=== PATIENT | female | born 1985 | race American Indian/Alaskan Native ===

== ENCOUNTER 2019-07-05 14:22 | Emergency (ER) | payer SELFPAY ==
[2019-07-05 14:30] VITALS: BP 125/77
[2019-07-05] MEDS ORDERED: ANTIVERT PO ONE (15:51)
[2019-07-05] MEDS ORDERED: NACL 0.9% 1000 ML 1,000 ML IV ONE (15:51)
[2019-07-05 16:40] LABS: Eosinophils # (Auto) 0.3 K/mm3 (0.0-0.4); Hematocrit 39.8 % (30.3-42.9); Hemoglobin 13.1 gm/dl (10.1-14.3); Lymphocytes # (Auto) 2.3 K/mm3 (1.2-5.4); Lymphocytes % (Auto) 45.3 % (13.4-35.0); Mean Corpuscular HGB Conc 33 % (30-34); Mean Corpuscular Volume 84 fl (79-97); Monocytes # (Auto) 0.4 K/mm3 (0.0-0.8); Monocytes % (Auto) 7.7 % (0.0-7.3); Platelet Count 265 K/mm3 (140-440); Red Blood Count 4.76 M/mm3 (3.65-5.03); Red Cell Distribution Width 14.2 % (13.2-15.2)
[2019-07-05 16:46] LABS: Alanine Aminotransferase 9 units/L (7-56); Albumin 4.2 g/dL (3.9-5); BUN/Creatinine Ratio 14; Blood Urea Nitrogen 11 mg/dL (7-17); Calcium 9.7 mg/dL (8.4-10.2); Hemolysis Index 12
--- NOTE | 2019-07-05 17:18 | Emergency Department Report ---
ED General Adult HPI - General Chief complaint: Dizziness Stated complaint: DIZZINESS/BLACKOUTS Time Seen by Provider: 07/05/19 15:40 Source: patient Mode of arrival: Ambulatory Limitations: No Limitations - History of Present Illness Initial comments: This is a 33-year-old female dizziness intermittently for the past few days. Patient states she was at home when symptoms started. Patient states that he feels that the room is spinning around her. Patient states that dizziness is worsened with standing and alleviated with sitting or resting. She states last menstrual period as 06/14/2019. Patient states that she takes no medications or has any allergies to any medications. Patient states that she is pretty healthy and has no medical conditions. She denies fever assess chills/nausea vomiting/blurry vision or visual disturbances. - Related Data Previous Rx's Medication Instructions Recorded Last Taken Type Meclizine [Antivert] 25 mg PO BID PRN #20 tablet 07/05/19 Unknown Rx Nitrofurantoin Banner/M-Cryst 100 mg PO Q12HR #14 capsule 07/05/19 Unknown Rx [Macrobid CAP] Allergies Allergy/AdvReac Type Severity Reaction Status Date / Time No Known Allergies Allergy Unverified 07/05/19 14:31 ED Review of Systems ROS: Stated complaint: DIZZINESS/BLACKOUTS Other details as noted in HPI Comment: All other systems reviewed and negative ED Past Medical Hx - Past Medical History Previous Medical History?: No - Surgical History Past Surgical History?: No - Social History Smoking Status: Never Smoker Substance Use Type: None - Medications Home Medications: Home Medications Medication Instructions Recorded Confirmed Last Taken Type Meclizine [Antivert] 25 mg PO BID PRN #20 tablet 07/05/19 Unknown Rx Nitrofurantoin Banner/M-Cryst 100 mg PO Q12HR #14 capsule 07/05/19 Unknown Rx [Macrobid CAP] ED Physical Exam - General Limitations: No Limitations General appearance: alert, in no apparent distress - Head Head exam: Present: atraumatic, normocephalic - Eye Eye exam: Present: normal appearance - ENT ENT exam: Present: mucous membranes moist - Neck Neck exam: Present: normal inspection - Respiratory Respiratory exam: Present: normal lung sounds bilaterally. Absent: respiratory distress - Cardiovascular Cardiovascular Exam: Present: regular rate, normal rhythm. Absent: systolic murmur, diastolic murmur, rubs, gallop - GI/Abdominal GI/Abdominal exam: Present: soft, normal bowel sounds - Extremities Exam Extremities exam: Present: normal inspection - Back Exam Back exam: Present: normal inspection - Neurological Exam Neurological exam: Present: alert, oriented X3, CN II-XII intact, normal gait - Expanded Neurological Exam Expanded Cerebellar function: Finger to Nose: Normal Motor strength exam: RUE: 5, LUE: 5, RLE: 5, LLE: 5 Best Eye Response (Mariam): (4) open spontaneously Best Motor Response (Alto): (6) obeys commands Best Verbal Response (Alto): (5) oriented Mariam Total: 15 - Psychiatric Psychiatric exam: Present: normal affect, normal mood - Skin Skin exam: Present: warm, dry, intact, normal color. Absent: rash ED Course Vital Signs 07/05/19 14:28 Temperature 98.3 F Pulse Rate 73 Respiratory 19 Rate Blood Pressure 125/77 [Right] O2 Sat by Pulse 99 Oximetry ED Medical Decision Making - Lab Data Result diagrams: 07/05/19 16:03 07/05/19 16:03 - Medical Decision Making 33-year-old female presents with dizziness most likely due to vertigo/electrolyte imbalance. Patient received meclizine in the ED, CBC, CMP, urine tests a urinalysis obtained. Urinalysis positive for urinary tract infection. Antibiotics given for treatment Labs were within normal limits. Discussed findings with the patient. Discussed with patient will send her home on meclizine and follow up to see a neurologist/primary-care physician. Vital signs are normal patient is in no acute distress she has no neurological deficit and states to understanding instructions. Critical care attestation.: If time is entered above; I have spent that time in minutes in the direct care of this critically ill patient, excluding procedure time. ED Disposition Clinical Impression: Vertigo, Dizziness, UTI (urinary tract infection) Disposition: - TO HOME OR SELFCARE Is pt being admited?: No Does the pt Need Aspirin: No Condition: Stable Instructions: Urinary Tract Infection in Women (ED), Vertigo (ED), Dizziness (ED) Additional Instructions: Make sure to follow up with the primary care physician as discussed. Take all your medications as you've been prescribed. If you have any worsening symptoms or develop new symptoms please return to ED immediately. Prescriptions: Meclizine [Antivert] 25 mg PO BID PRN #20 tablet PRN Reason: Vertigo Nitrofurantoin Banner/M-Cryst [Macrobid CAP] 100 mg PO Q12HR #14 capsule [facility] [Primary Care Provider] - 3-5 Days KYLAH REY MD [Staff Physician] - 3-5 Days [facility] [Provider Group] - 3-5 Days Forms: Accompanied Note, Work/School Release Form(ED)
[2019-07-05 17:59] LABS: HCG Qualitative,Urine Negative (Negative)
[2019-07-05 18:03] LABS: Bacteria,Urine 2+ /HPF (Negative); Bilirubin,Urine NEG (Negative); Blood,Urine SM (Negative); Color,Urine Amber (Yellow); Mucus,Urine 3+ /HPF; Protein,Urine <15 mg/dL mg/dL (Negative); Urobilinogen,Urine < 2.0 mg/dL (<2.0)
== END 2019-07-05 18:23 | disposition home or self-care (01) ==
LOC: ED 14:22
DX: R42 Dizziness and giddiness (principal); N39.0 Urinary tract infection, site not specified
CPT/HCPCS: 36415; 80053; 81001; 81025; 85025; 87086